=== PATIENT | female | born 1960 | race Caucasian/White ===

== ENCOUNTER 2017-12-14 10:11 | Day surgery (SDC) | payer OTHER ==
[2017-12-07 17:45] VITALS: BMI 33.5
[~2017-12-14 10:11] MED LIST: LACTATED RINGERS 1,000 ML IV SCH
[2017-12-14] MEDS ORDERED: LIDOCAINE 1% 20 ML VIAL (10MG/ML) FOR IV START INTRADERMA ONE (11:15)
[2017-12-14 11:24] VITALS: TEMP 97.4
--- NOTE | 2017-12-14 12:04 | P.PCN ---
Date of Procedure: 12/14/17 Procedure(s) Performed: Procedure=1-lumbar puncture . Preoperative diagnoses= multiple sclerosis. Postoperative diagnosis= multiple sclerosis. Anesthesia= moderate sedation with intravenous fentanyl 100 micrograms ,and local lidocaine infiltration 1% 4 mL for skin and subcu infiltration. Condition= stable. Complications=none. Indication for the procedure= patient with a history of symptoms suggestive of multiple sclerosis and she was referred to have a lumbar puncture for diagnostic study procedure risk and benefits and alternatives discussed with the patient and she agreed with the preceding, Description of the procedure= patient in the procedure room sitting position and monitors applied, the back prepped with chlorhexidine -3, sterile technique , local infiltration of the skin and subcu interstitial with lidocaine 1% 2 mL, then 22-gauge quickie Needle advanced slowly at L4 5 interlaminar space, the cerebrospinal fluid was clear, and no heme no paresthesia, a total of 8 mL of clear cerebrospinal fluid collected in 4 different tubes, the needle removed, Band-Aid applied , patient tolerated the procedure well without any complications, and further management as per her neurologist
[2017-12-14 12:08] LABS: T4, Free (Free Thyroxine) 1.02 ng/dL (0.78-2.19)
[2017-12-14 12:15] VITALS: RESP 16
[2017-12-14 12:24] VITALS: BP 140/89; PULSE 100
[2017-12-14] MEDS ORDERED: IV FLUID CONTINUATION 1,000 ML IV ONE (12:26)
[2017-12-14 12:51] LABS: Appearance,CSF Clear; CSF Tube Number 4; Nucleated Cells, CSF 1 u/L (0-5); Red Blood Cell,CSF 1 u/L (0-10)
[2017-12-14 13:04] LABS: Glucose,CSF 56 mg/dL (40-70); Total Protein,CSF 49 mg/dL (12-60)
[2017-12-14 16:23] LABS: Rheumatoid Factor 7 IU/mL (0-15)
[2017-12-14 18:19] LABS: DNA Double-Stranded NEGATIVE (NEGATIVE); RNP <0.2 AI
[2017-12-15 09:21] LABS: Lyme IgG/IgM 0.1 Index
[2017-12-15 11:34] LABS: APTT 37 Sec(s) (<43); Dilute Russell Viper Venom 37 Sec(s) (<44)
[2017-12-15 12:13] LABS: VDRL, Qualitative CSF Nonreactive (Nonreactive)
[2017-12-15 12:32] LABS: IgG - CSF 3.6 mg/dL (0.0 - 3.4); IgG/Albumin Index (CSF) 0.47 (0.00 - 0.77)
== END 2017-12-14 12:31 | disposition home or self-care (01) ==
LOC: ORPAIN 10:11
PROVIDERS: ATTEND Specialist
DX: G35 Multiple sclerosis (principal); Z88.8 Allergy status to other drugs, medicaments and biological substances; I10 Essential (primary) hypertension
CPT/HCPCS: 87476; 86592; 86235 ×3; 82784 ×2; 84439; 88108; 84157; 82945; 82040; 82042; 83916; 83873; 84443; 84450; 84460; 85730; 86431; 85613; 89050; 86618; 86780; 86038; 86225; 62270; J2001; J3010; 99152